=== PATIENT | male | born 1975 | race Caucasian/White ===

== ENCOUNTER 2016-04-14 14:35 | Outpatient (CLI) | payer BC | END 2016-04-14 14:36 | disposition home or self-care (01) | DX: R82.90 Unspecified abnormal findings in urine (principal) ==

== ENCOUNTER 2016-12-24 11:07 | Emergency (ER) | payer OTHER, BC ==
[2016-12-24 11:14] VITALS: BP 123/69
--- NOTE | 2016-12-24 12:00 | ED Physician Documentation ---
History of Present Illness - Stated complaint Stated Complaint: FACE LAC - Chief complaint Chief Complaint: Trauma Hd/Nk - History obtained from History obtained from: Patient - History of Present Illness Timing: Prior to arrival - Additonal information Additional information: The patient is a 41-year-old male who presents with injury to the right side of his face. He was pulling on a wrench at work when the wrench slipped and the and hit him in the right maxillary region of the face he is concerned about possible laceration through his upper lip. He denies any injury to his teeth. Tetanus status is up-to-date. Review of Systems Constitutional: denies: Fever Eyes: reports: Reviewed and negative Nose: denies: Epistaxis Throat: denies: Dental pain / toothache GI: denies: Nausea, Vomiting Skin: reports: Abrasion (s) Musculoskeletal: denies: Neck pain Neurologic: denies: Altered mental status, Headache, LOC PD PAST MEDICAL HISTORY - Past Medical History Cardiovascular: None Respiratory: None Endocrine/Autoimmune: None GI: None : Kidney stones HEENT: None Psych: None Musculoskeletal: None Derm: Other Other Past Medical History: Basal cell skin CA - Past Surgical History Derm: Skin cancer surgery - Present Medications Home Medications: Ambulatory Orders Medication Instructions Recorded Confirmed HYDROcod/ACETAM 5/325 [Iva 5/325] 1 each PO PRN PRN 12/24/16 12/24/16 - Allergies Allergies/Adverse Reactions: Allergies Allergy/AdvReac Type Severity Reaction Status Date / Time No Known Drug Allergies Allergy Verified 12/24/16 11:14 - Social History Does the pt smoke?: No Smoking Status: Never smoker Does the pt drink ETOH?: Yes Does the pt have substance abuse?: No PD ED PE NORMAL - Vitals Vital signs reviewed: Yes (normal) - General General: Alert and oriented X 3, Well developed/nourished - HEENT HEENT: PERRL, EOMI, Ears normal, Pharynx benign, Dentition benign, Other (There is slight swelling with a superficial abrasion in the right maxillo-labial crease. There is no cutaneous or intraoral laceration. Teeth are intact.) - Neck Neck: No bony TTP - Respiratory Respiratory: No respiratory distress - Neuro Neuro: Alert and oriented X 3, Normal speech PD MEDICAL DECISION MAKING - ED course Complexity details: considered differential, d/w patient ED course: The patient's presentation is significant for contusion to the face with a superficial abrasion. There is no laceration or dental injury. I discussed with him the expected course of healing, symptomatically treatment and outpatient follow-up, as well as potentially worrisome signs or symptoms that should prompt reevaluation emergency department. Departure - Departure Disposition: 01 Home, Self Care Clinical Impression: Abrasion Contusion of face Qualifiers: Encounter type: initial encounter Qualified Code(s): S00.83XA - Contusion of other part of head, initial encounter Condition: Stable Instructions: ED Contusion Face Follow-Up: Raj Farley MD [Provider Admit Priv/Credential] - Comments: Apply icepack to the wound area intermittently for the next 3 days. You can use Tylenol or ibuprofen if needed for pain. Follow up with your primary physician or to the emergency department if you develop any sign of infection, or otherwise worsening symptoms. Discharge Date/Time: 12/24/16 12:00
== END 2016-12-24 12:00 | disposition home or self-care (01) ==
LOC: ED 11:07
DX: S00.81XA Abrasion of other part of head, initial encounter (principal); S00.83XA Contusion of other part of head, initial encounter; W20.8XXA Other cause of strike by thrown, projected or falling object, initial encounter; Y92.89 Other specified places as the place of occurrence of the external cause; Y99.0 Civilian activity done for income or pay; Z85.828 Personal history of other malignant neoplasm of skin
CPT/HCPCS: 1040M; 99282; 99283

== ENCOUNTER 2017-02-08 07:24 | Outpatient (CLI) | payer OTHER ==
[2017-02-08 11:01] LABS: BASOPHILS % (AUTO) 0.4 %; EOSINOPHILS # (AUTO) 0.2 10^3/uL (0.0-0.7); EOSINOPHILS % (AUTO) 2.1 %; HCT - HEMATOCRIT 44.3 % (42.0-52.0); LYMPHOCYTES # (AUTO) 1.2 10^3/uL (1.5-3.5); LYMPHOCYTES % (AUTO) 13.4 %; MEAN CORPUSCULAR HEMOGLOBIN 29.5 pg (27.0-31.0); MEAN CORPUSCULAR HGB CONC 33.7 g/dL (32.0-36.0); MEAN CORPUSCULAR VOLUME 87.5 fL (80.0-94.0); MEAN PLATELET VOLUME 9.3 fL (7.4-11.4); MONOCYTES # (AUTO) 0.5 10^3/uL (0.0-1.0); MONOCYTES % (AUTO) 5.5 %; NEUTROPHILS # (AUTO) 6.9 10^3/uL (1.5-6.6); NEUTROPHILS % (AUTO) 78.6 %; RED BLOOD COUNT 5.07 10^6/uL (4.70-6.10); RED CELL DISTRIBUTION WIDTH 13.9 % (12.0-15.0); UNCORRECTED WHITE BLOOD COUNT 8.8 x10^3/uL; WHITE BLOOD COUNT 8.8 x10^3/uL (4.8-10.8)
[2017-02-08 11:24] LABS: ALBUMIN/GLOBULIN RATIO 1.9 (1.0-2.2); BILIRUBIN,TOTAL 1.1 mg/dL (0.2-1.0); BUN - BLOOD UREA NITROGEN 16 mg/dL (6-20); CALCIUM 9.1 mg/dL (8.5-10.3); CARBON DIOXIDE - CO2 27 mmol/L (21-32); CHLORIDE 105 mmol/L (101-111); CHOL/HDL RATIO 3.1 (<5.0); CHOLESTEROL 202 mg/dL; CREATININE 0.9 mg/dL (0.6-1.2); GFR - MDRD 92 (>89); GLUCOSE 103 mg/dL (70-100); HDL CHOLESTEROL 66 mg/dL; LDL/HDL RATIO 1.8 (<3.6); SODIUM 140 mmol/L (135-145); TRIGLYCERIDES 71 mg/dL; VLDL CHOLESTEROL 14 mg/dL
== END 2017-02-08 07:25 | disposition home or self-care (01) ==
LOC: LAB.F 07:24
PROVIDERS: ATTEND Physician Assistant Medical
DX: Z00.00 Encounter for general adult medical examination without abnormal findings (principal); Z11.59 Encounter for screening for other viral diseases; Z72.89 Other problems related to lifestyle
CPT/HCPCS: 36415; 80053; 80061; 84443; 85025; 86803

== ENCOUNTER 2017-10-20 15:32 | Outpatient (CLI) | payer OTHER | END 2017-10-20 15:33 | LOC: LAB.R 15:32 | PROVIDERS: ATTEND Physician Assistant Medical | DX: L03.114 Cellulitis of left upper limb (principal) | CPT/HCPCS: 87070; 87181; 87205 ==

== ENCOUNTER 2018-03-10 07:56 | Outpatient (CLI) | payer BC ==
[2018-03-10 10:42] LABS: BASOPHILS % (AUTO) 0.5 %; EOSINOPHILS # (AUTO) 0.2 10^3/uL (0.0-0.7); EOSINOPHILS % (AUTO) 5.4 %; LYMPHOCYTES # (AUTO) 1.5 10^3/uL (1.5-3.5); LYMPHOCYTES % (AUTO) 36.7 %; MEAN CORPUSCULAR HEMOGLOBIN 29.7 pg (27.0-31.0); MEAN CORPUSCULAR HGB CONC 33.9 g/dL (32.0-36.0); MEAN CORPUSCULAR VOLUME 87.8 fL (80.0-94.0); MEAN PLATELET VOLUME 9.3 fL (7.4-11.4); MONOCYTES # (AUTO) 0.3 10^3/uL (0.0-1.0); MONOCYTES % (AUTO) 7.4 %; NEUTROPHILS # (AUTO) 2.1 10^3/uL (1.5-6.6); PLT - PLATELET COUNT 182 10^3/uL (130-450); RED BLOOD COUNT 5.06 10^6/uL (4.70-6.10); RED CELL DISTRIBUTION WIDTH 13.7 % (12.0-15.0); WHITE BLOOD COUNT 4.2 x10^3/uL (4.8-10.8)
[2018-03-10 10:55] LABS: ALBUMIN 4.3 g/dL (3.2-5.5); ALBUMIN/GLOBULIN RATIO 1.5 (1.0-2.2); ALKALINE PHOSPHATASE 53 IU/L (42-121); ALT ALANINE AMINOTRANSFERASE 20 IU/L (10-60); AST ASPARTATE AMINOTRANSFERASE 19 IU/L (10-42); BILIRUBIN,TOTAL 0.9 mg/dL (0.2-1.0); BUN - BLOOD UREA NITROGEN 23 mg/dL (6-20); CALCIUM 9.2 mg/dL (8.5-10.3); CARBON DIOXIDE - CO2 27 mmol/L (21-32); CHLORIDE 105 mmol/L (101-111); CHOL/HDL RATIO 3.2 (<5.0); CHOLESTEROL 204 mg/dL; CREATININE 0.9 mg/dL (0.6-1.2); GFR - MDRD 92 (>89); GLUCOSE 103 mg/dL (70-100); HDL CHOLESTEROL 64 mg/dL; LDL CHOLESTEROL,CALCULATED 129 mg/dL; SODIUM 139 mmol/L (135-145); TOTAL PROTEIN 7.2 g/dL (6.7-8.2); VLDL CHOLESTEROL 11 mg/dL
== END 2018-03-10 07:57 | disposition home or self-care (01) ==
LOC: LAB.F 07:56
PROVIDERS: ATTEND Physician Assistant Medical
DX: Z00.00 Encounter for general adult medical examination without abnormal findings (principal)
CPT/HCPCS: 36415; 80053; 80061; 83721; 84443; 85025

== ENCOUNTER 2018-03-17 08:35 | Outpatient (CLI) | payer BC ==
--- NOTE | 2018-03-17 11:50 | XRAY Report ---
Reason: FAMILY HISTORY OF LUNG CANCER Procedure Date: 03/17/2018 Accession Number: [id number] / [id number] Procedure: XR - Chest 2 View X-Ray CPT Code: 70378 FULL RESULT: EXAM: CHEST RADIOGRAPHY EXAM DATE: 03/17/2018 09:02 AM. CLINICAL HISTORY: FAMILY HISTORY OF LUNG CANCER. COMPARISON: Chest CT 01/06/2015. TECHNIQUE: 2 views. FINDINGS: Lungs/Pleura: No focal opacities evident. No pleural effusion. No pneumothorax. Normal volumes. Mediastinum: Heart and mediastinal contours are unremarkable. IMPRESSION: No evidence of mass on plain film. No acute thoracic findings. [facility]
== END 2018-03-17 08:36 | disposition home or self-care (01) ==
LOC: DI 08:35
PROVIDERS: ATTEND Physician Assistant Medical
DX: R05 Cough (principal); Z80.1 Family history of malignant neoplasm of trachea, bronchus and lung; C43.9 Malignant melanoma of skin, unspecified
CPT/HCPCS: 71046

== ENCOUNTER 2019-01-10 13:02 | Outpatient (CLI) | payer BC ==
[2019-01-10 17:28] LABS: BASOPHILS % (AUTO) 0.4 %; EOSINOPHILS # (AUTO) 0.1 10^3/uL (0.0-0.7); EOSINOPHILS % (AUTO) 2.2 %; HGB - HEMOGLOBIN 14.5 g/dL (14.0-18.0); LYMPHOCYTES # (AUTO) 1.5 10^3/uL (1.5-3.5); MEAN CORPUSCULAR HEMOGLOBIN 28.9 pg (27.0-31.0); MEAN CORPUSCULAR HGB CONC 33.3 g/dL (32.0-36.0); MEAN CORPUSCULAR VOLUME 86.8 fL (80.0-94.0); MEAN PLATELET VOLUME 11.6 fL (7.4-11.4); MONOCYTES # (AUTO) 0.2 10^3/uL (0.0-1.0); MONOCYTES % (AUTO) 5.2 %; NEUTROPHILS # (AUTO) 2.8 10^3/uL (1.5-6.6); PLT - PLATELET COUNT 202 10^3/uL (130-450); RED BLOOD COUNT 5.01 10^6/uL (4.70-6.10); RED CELL DISTRIBUTION WIDTH 13.2 % (12.0-15.0); WHITE BLOOD COUNT 4.6 x10^3/uL (4.8-10.8)
[2019-01-10 17:35] LABS: ALBUMIN 4.9 g/dL (3.2-5.5); BILIRUBIN,TOTAL 1.1 mg/dL (0.2-1.0); CALCIUM 9.4 mg/dL (8.5-10.3); CREATININE 0.7 mg/dL (0.6-1.2); PARTIAL THROMBOPLASTIN TIME 28.6 secs (24.9-33.3); TOTAL PROTEIN 7.3 g/dL (6.7-8.2)
[2019-01-10 18:24] LABS: PT - PROTHROMBIN TIME 11.6 secs (9.9-12.6)
== END 2019-01-10 13:03 | disposition home or self-care (01) ==
LOC: LAB.S 13:02
PROVIDERS: ATTEND Family Medicine
DX: M79.605 Pain in left leg (principal); Z84.89 Family history of other specified conditions
CPT/HCPCS: 36415; 80053; 85025; 85610; 85730

== ENCOUNTER 2019-01-10 15:57 | Outpatient (CLI) | payer OTHER ==
--- NOTE | 2019-01-10 17:46 | Ultrasound Report ---
Reason: LEG PAIN LEFT Procedure Date: 01/10/2019 Accession Number: [id number] / [id number] Procedure: US - Duplex Ext Veins Left CPT Code: Final Report FULL RESULT: EXAM: LEFT LOWER EXTREMITY VENOUS ULTRASOUND EXAM DATE: 01/10/2019 04:50 PM. CLINICAL HISTORY: LEG PAIN LEFT. COMPARISON: None. TECHNIQUE: Real-time sonographic vascular imaging was performed by the carnival worker through the lower extremity utilizing both color-flow and Doppler spectral analysis. Multiple field sales representative static images were saved for review. FINDINGS: Common Femoral Vein (CFV): Normal. CFV-GSV Junction: Normal. Profunda Femoral Vein (PFV): Normal. Femoral Vein (FV) Prox: Normal. Femoral Vein (FV) Mid: Normal. Femoral Vein (FV) Dist: Normal. Popliteal Vein: Normal. Posterior Tibial Veins: Normal. Peroneal Veins: Normal. Contralateral Side CFV: Normal. Other: None. IMPRESSION: No evidence for deep venous thrombosis in the left lower extremity. [facility]
== END 2019-01-10 15:58 | disposition home or self-care (01) ==
LOC: DI 15:57
PROVIDERS: ATTEND Family Medicine
DX: M79.605 Pain in left leg (principal); Z85.820 Personal history of malignant melanoma of skin; Z83.2 Family history of diseases of the blood and blood-forming organs and certain disorders involving the immune mechanism; Z82.49 Family history of ischemic heart disease and other diseases of the circulatory system
CPT/HCPCS: 36415; 80053; 85025; 85610; 85730

== ENCOUNTER 2019-02-16 07:02 | Outpatient (CLI) | payer OTHER ==
[2019-02-16 11:11] LABS: CHOLESTEROL 186 mg/dL; HDL CHOLESTEROL 62 mg/dL; LDL CHOLESTEROL,CALCULATED 110 mg/dL; LDL/HDL RATIO 1.8 (<3.6); VLDL CHOLESTEROL 14 mg/dL
== END 2019-02-16 07:03 | disposition home or self-care (01) ==
LOC: LAB.S 07:02
PROVIDERS: ATTEND Registered Nurse
DX: Z83.3 Family history of diabetes mellitus (principal)
CPT/HCPCS: 36415; 80061; 83721; 84443

== ENCOUNTER 2019-05-25 08:00 | Outpatient (CLI) | payer OTHER | END 2019-05-25 23:59 | disposition home or self-care (01) | LOC: LAB.R 08:00 | PROVIDERS: ATTEND Registered Nurse | DX: R30.0 Dysuria (principal); R10.9 Unspecified abdominal pain | CPT/HCPCS: 87086 ==